=== PATIENT | female | born 1955 | race Caucasian/White ===

== ENCOUNTER 2019-11-25 15:34 | Outpatient (REF) | payer SELFPAY ==
[2019-11-25 16:36] LABS: Estmated Average Glucose 123; Hemoglobin A1C 5.9 % (4.0-6.0)
[2019-11-25 17:16] LABS: Cholesterol 140 mg/dL (0-200); Glucose 92 mg/dL (65-115); HDL Cholesterol 50 mg/dL (60-100); LDL Cholesterol Calculated 48 mg/dL (50-129); LDL HDL Ratio 0.96 RATIO (0.00-3.22); Triglycerides 210 mg/dL (0-150)
== END 2019-11-25 15:35 | disposition home or self-care (01) ==
LOC: LAB 15:34
PROVIDERS: Family Provider Nurse Practitioner; Visit Provider Dermatology
DX: Z13.9 Encounter for screening, unspecified (principal)
CPT/HCPCS: 80053; 80061; 81001; 82947; 83036

== ENCOUNTER → 2020-02-23 10:14 | Outpatient (BNVA) | payer MEDICARE, BC, SELFPAY | PROVIDERS: Family Provider Nurse Practitioner; Visit Provider Nurse Practitioner | DX: I10 Essential (primary) hypertension (principal); E11.65 Type 2 diabetes mellitus with hyperglycemia; F41.8 Other specified anxiety disorders | CPT/HCPCS: 80053; 81000; 83036 ==

== ENCOUNTER → 2020-05-18 09:10 | Outpatient (BNVA) | payer MEDICARE, BC, SELFPAY | PROVIDERS: Family Provider Nurse Practitioner; Visit Provider Nurse Practitioner | DX: E11.65 Type 2 diabetes mellitus with hyperglycemia (principal); I10 Essential (primary) hypertension | CPT/HCPCS: 80053; 80061; 81000; 83036 ==

== ENCOUNTER 2020-07-10 11:35 | Outpatient (CLI) | payer MEDICARE, BC, SELFPAY ==
--- NOTE | 2020-07-10 12:00 | MM_ITS ---
WS: [id number] BILATERAL SCREENING DIGITAL MAMMOGRAM WITH CAD HISTORY: Screening mammo COMPARISON: 06/17/2019 and 01/28/2017 Bilateral CC and MLO views submitted. Computer aided detection analyzed. Breast composition: There are scattered areas of fibroglandular density. No suspicious masses, microc alcifications or architectural distortion. Numerous bilateral benign calcifications within each breas t. MM/[place] [id number] IMPRESSION: BI-RADS: 2-Benign FOLLOW UP: 1 Year Follow-up
== END 2020-07-10 11:36 | disposition home or self-care (01) ==
LOC: RADSHAW 11:42
PROVIDERS: PCP Nurse Practitioner; Visit Provider Nurse Practitioner
DX: Z12.31 Encounter for screening mammogram for malignant neoplasm of breast (principal)
CPT/HCPCS: 77067

== ENCOUNTER → 2020-08-21 09:26 | Outpatient (BNVA) | payer MEDICARE, BC, SELFPAY | PROVIDERS: PCP Nurse Practitioner; Visit Provider Nurse Practitioner | DX: I10 Essential (primary) hypertension (principal); E11.65 Type 2 diabetes mellitus with hyperglycemia | CPT/HCPCS: 80053; 80061; 83036 ==

== ENCOUNTER → 2020-11-21 09:09 | Outpatient (BNVA) | payer MEDICARE, BC, SELFPAY | PROVIDERS: PCP Nurse Practitioner; Visit Provider Nurse Practitioner | DX: E11.65 Type 2 diabetes mellitus with hyperglycemia (principal); I10 Essential (primary) hypertension | CPT/HCPCS: 80053; 80061; 83036 ==

== ENCOUNTER → 2021-05-17 09:04 | Outpatient (BNVA) | payer MEDICARE, BC, SELFPAY | PROVIDERS: PCP Nurse Practitioner; Visit Provider Nurse Practitioner | DX: E11.65 Type 2 diabetes mellitus with hyperglycemia (principal); I10 Essential (primary) hypertension | CPT/HCPCS: 80053; 80061; 83036 ==

== ENCOUNTER → 2021-05-23 10:20 | Outpatient (BNVA) | payer MEDICARE, BC, SELFPAY | PROVIDERS: PCP Nurse Practitioner; Visit Provider Nurse Practitioner | DX: M25.551 Pain in right hip (principal); M79.604 Pain in right leg; M85.851 Other specified disorders of bone density and structure, right thigh | CPT/HCPCS: 72100; 73130; 73552; 73562; 73590 ==

== ENCOUNTER → 2021-11-26 09:50 | Outpatient (BNVA) | payer MEDICARE, BC, SELFPAY | PROVIDERS: PCP Nurse Practitioner; Visit Provider Nurse Practitioner | DX: E11.65 Type 2 diabetes mellitus with hyperglycemia (principal); I10 Essential (primary) hypertension | CPT/HCPCS: 80053; 80061; 83036 ==

== ENCOUNTER 2021-12-06 14:25 | Outpatient (CLI) | payer MEDICARE, BC, SELFPAY ==
--- NOTE | 2021-12-06 14:51 | XR_ITS ---
WS: [id number] Lumbar spine, 3 views, 12/06/2021 Clinical Data: M54.50 - Low back pain, unspecified Comparison: Lumbar spine, 05/23/2021. Findings: No compression fractures or subluxation is seen. There is degenerative disc narrowing at L5-S1. The t ransverse processes and SI joints are normal. Anterior osteoarthritic spurring is seen in the lower thoracic vertebral bodies and the L1 vertebral body. There is calcification of the wall of the abdominal aorta but no aneurysm. XR/XR lumbar spine 2-3V* [id number] Impression: 1. Degenerative disc narrowing at L5-S1. 2. Mild anterior osteoarthritic spurring at L1.
--- NOTE | 2021-12-06 14:51 | XR_ITS ---
WS: [id number] Sacrum and coccyx, 2 views, 12/06/2021 Clinical Data: M54.50 - Low back pain, unspecified Comparison: None. Findings: No fractures or dislocations are seen. The SI joints and pubic symphysis are unremarkable. No bone de struction or erosion is seen. There is osteoarthritic narrowing of the right hip. XR/XR coccyx 2V [id number] Impression: Negative sacrum and coccyx.
== END 2021-12-06 14:26 | disposition home or self-care (01) ==
LOC: RAD 14:28
PROVIDERS: PCP Nurse Practitioner; Visit Provider Nurse Practitioner
DX: M54.50 Low back pain, unspecified (principal)
CPT/HCPCS: 72100; 72220

== ENCOUNTER → 2022-03-20 08:38 | Outpatient (BNVA) | payer MEDICARE, BC, SELFPAY | PROVIDERS: PCP Nurse Practitioner; Visit Provider Nurse Practitioner | DX: E11.65 Type 2 diabetes mellitus with hyperglycemia (principal) | CPT/HCPCS: 80053; 80061; 83036 ==

== ENCOUNTER → 2022-03-22 09:51 | Outpatient (BNVA) | payer MEDICARE, BC, SELFPAY | PROVIDERS: PCP Nurse Practitioner; Visit Provider Nurse Practitioner | DX: E11.65 Type 2 diabetes mellitus with hyperglycemia (principal); I10 Essential (primary) hypertension; F41.8 Other specified anxiety disorders; M54.50 Low back pain, unspecified; M79.604 Pain in right leg | CPT/HCPCS: 81000 ==

== ENCOUNTER → 2022-06-12 10:45 | Outpatient (BNVA) | payer MEDICARE, BC, SELFPAY | PROVIDERS: PCP Nurse Practitioner; Visit Provider Nurse Practitioner | DX: E11.65 Type 2 diabetes mellitus with hyperglycemia (principal) | CPT/HCPCS: 80053; 80061; 83036 ==

== ENCOUNTER → 2022-08-21 11:23 | Outpatient (BNVA) | payer MEDICARE, BC, SELFPAY | PROVIDERS: PCP Nurse Practitioner; Visit Provider Nurse Practitioner | DX: M25.551 Pain in right hip (principal) | CPT/HCPCS: 73502 ==

== ENCOUNTER → 2022-09-10 14:19 | Outpatient (BNVA) | payer MEDICARE, BC, SELFPAY | PROVIDERS: PCP Nurse Practitioner; Referring Provider Nurse Practitioner; Visit Provider Student in an Organized Health Care Education/Training Program | DX: M16.11 Unilateral primary osteoarthritis, right hip (principal); I10 Essential (primary) hypertension; E11.65 Type 2 diabetes mellitus with hyperglycemia | CPT/HCPCS: 99204 ==

== ENCOUNTER → 2022-09-16 09:12 | Outpatient (BNVA) | payer MEDICARE, BC, SELFPAY | PROVIDERS: PCP Nurse Practitioner; Visit Provider Nurse Practitioner | DX: E11.65 Type 2 diabetes mellitus with hyperglycemia (principal) | CPT/HCPCS: 80053; 80061; 83036 ==

== ENCOUNTER → 2022-09-17 16:32 | Outpatient (BNVA) | payer MEDICARE, BC, SELFPAY | PROVIDERS: PCP Nurse Practitioner; Visit Provider Nurse Practitioner | DX: I10 Essential (primary) hypertension (principal); E11.65 Type 2 diabetes mellitus with hyperglycemia; F41.8 Other specified anxiety disorders; E78.1 Pure hyperglyceridemia; M54.50 Low back pain, unspecified; M79.604 Pain in right leg; Z23 Encounter for immunization | CPT/HCPCS: 81000 ==

== ENCOUNTER → 2022-10-02 10:39 | Outpatient (BNVA) | payer MEDICARE, BC, SELFPAY | PROVIDERS: PCP Nurse Practitioner; Visit Provider Student in an Organized Health Care Education/Training Program | DX: M16.11 Unilateral primary osteoarthritis, right hip (principal); E11.65 Type 2 diabetes mellitus with hyperglycemia | CPT/HCPCS: 99214 ==

== ENCOUNTER 2022-10-11 09:25 | Outpatient (CLI) | payer MEDICARE, BC, SELFPAY ==
--- NOTE | 2022-10-11 09:30 | CT_ITS ---
WS: [id number] NONCONTRAST CT RIGHT HIP TECHNIQUE: Noncontrast CT RIGHT hip with coronal and sagittal reformatted images. CLINICAL INFORMATION: Osteoarthritis of right hip COMPARISON: None. DLP: 764.[address] scans at [facility] use at least one of these dose optimization techniques: automated e xposure control; mA and/or kV adjustment per patient size (includes targeted exams where dose is matc hed to clinical indication); or iterative reconstruction. FINDINGS: Advanced osteoarthritis RIGHT hip with [id number] articulation. Associated hypertrophic spurring an d sclerosis involving the acetabulum and femoral head. Subchondral cystic change involving the femora l head. Normal inferior and superior pubic rami. Moderate degenerative narrowing LEFT hip. Advanced facet arthropathy lower lumbar spine. CT/CT hip RT wo con* [id number] IMPRESSION: Exam obtained for preoperative purposes.
== END 2022-10-11 09:26 | disposition home or self-care (01) ==
LOC: RAD 09:26
PROVIDERS: PCP Nurse Practitioner; Visit Provider Student in an Organized Health Care Education/Training Program
DX: Z01.818 Encounter for other preprocedural examination (principal); M16.11 Unilateral primary osteoarthritis, right hip
CPT/HCPCS: 73700

== ENCOUNTER 2022-10-23 14:49 | Inpatient (IN) | payer MEDICARE, BC, SELFPAY ==
--- NOTE | 2022-10-18 11:39 | ECG_ITS ---
[facility] Test Date: 2022-10-18 Pat Name: Alexus Goode Department: Room: Gender: Female Owner/Photographer: : [id number] Requested By: Miquel Haji Order Number: [id number] Sebas MD: John Stubbs M.D. Measurements Intervals [place] Rate: 60 P: 50 WV: 158 QRS: 13 QRSD: 85 T: 53 QT: 417 QTc: 418 Interpretive Statements SINUS RHYTHM Compared to ECG 01/13/2018 03:23:10 Sinus bradycardia no longer present T-wave abnormality no longer present Electronically Signed On 10-18-2022 14:41:21 MINT MACHINE OPERATOR by John Stubbs M.D. [id number]
[2022-10-18 12:10] LABS: Anion Gap 15.9 (5-19); Blood Urea Nitrogen 18 mg/dL (8-23); Calcium 8.8 mg/dL (8.5-10.5); Carbon Dioxide 23 mmol/L (22-29); Chloride 101 mmol/L (98-107); Glomerular Filtration Rate 44.8 mL/min (90-130); Glucose 110 mg/dL (65-115); Osmolality Calculated 285 mOsm/kg (285-295); Potassium 3.9 mmol/L (3.5-5.1); Sodium 136 mmol/L (136-145)
--- NOTE | 2022-10-18 14:05 | P.ANESASSM_ITS ---
Pre-Anesthetic Assessment Height/Weight: Height 1.57 m Operation Date: 10/23/22 10:20 Proposed Procedures p right hip total EARLENE anterior approach 88388,M16.9(Right) - DO Magui Caldwell anesthetic complications: none Was Beta Renee taken within 24 hours: N/A Was Clonidine taken within 24 hours: N/A Social Tobacco and No alcohol Exam alert, oriented x 3 and regular rate & rhythm Airway Submandibular: within normal limits Cervical ROM: within normal limits Mallampati: Class II Dentition: full Pulmonary Chronic Obstructive Pulmonary Disease CV/HEM Hypertension Metabolic Diabetes Mellitus [facility] Lower Back Pain and Osteoarthritis/DJD Neuropsych Anxiety Anesthetic Plan ASA status: 3 Anesthesia: Regional (specify below) (SAB) Medications/Allergies Home Medications Medication Instructions Recorded Confirmed Last Taken Type aspirin 81 mg tablet,delayed 81 mg PO DAILY 11/24/19 10/18/22 10/04/22 History release (Aspir-) camphor-methyl salicylate-menthol patch topical 11/28/21 10/02/22 Unknown History topical patch coenzyme J52-evmopls E 100 mg-100 100 cap PO DAILY 11/28/21 10/18/22 10/04/22 History unit capsule turmeric root extract 500 mg 500 mg PO BID 11/28/21 10/18/22 10/04/22 History capsule amlodipine 5 mg tablet 5 mg PO DAILY #30 tabs 09/17/22 10/18/22 10/18/22 Rx dapagliflozin 10 mg tablet 10 mg PO QAM #30 tabs 09/17/22 10/18/22 10/18/22 Rx (Farxiga) escitalopram oxalate 20 mg tablet 20 mg PO DAILY #30 tabs 09/17/22 10/18/22 10/18/22 Rx fenofibrate nanocrystallized 145 145 mg PO DAILY #30 tabs 09/17/22 10/18/22 10/18/22 Rx mg tablet (Tricor) hydroxyzine pamoate 25 mg capsule 25 mg PO .at bedtime #30 caps 09/17/22 10/18/22 10/17/22 Rx lisinopril 20 mg tablet 20 mg PO BID #60 tabs 09/17/22 10/18/22 10/18/22 Rx zonisamide 50 mg capsule 50 mg PO Q12H #60 caps 1210/18/22 10/18/22 Rx Allergies Allergy/AdvReac Type Severity Reaction Status Date / Time No Known Allergies Allergy Verified 10/18/22 10:46 [facility] Anesthesia Medical History Controlled type 2 diabetes mellitus with hyperglycemia, without long-term current use of insulin HTN, goal below 130/80 Short-term memory loss Situational anxiety Surgical History History of section History of hysterectomy with bilateral oophorectomy Family History Mother Cancer Breast age 89.5 Other Diabetes Social History Smoking and tobacco status: former smoker Second hand smoke exposure: No Smoking risk assessment/counseling performed?: No Alcohol intake: never Desire information about alcohol rehabilitation?: No Counseling given: No Desire information about substance/drug rehabilitation?: No Counseling given: No Adopted: No Caregiver/support person: No Lives independently: Yes Household members: none Housing: House Marital status: / Number of children: 1 Number of grandchildren: 1 service: No Current occupational status: unemployed Current occupational exposures/hazards: No History of recent travel: No Current gender identity: Female Data Anesthesia 10/18/22 11:08 BMP 10/18/22 11:08 Sodium 136 Potassium 3.9 Chloride 101 Carbon Dioxide 23 BUN 18 Creatinine 1.2 H Glucose 110 Calcium 8.8 Cardiac Studies: No Data to Display
[2022-10-23] VITALS (13 sets, daily range): BP systolic 89–119; BP diastolic 54–75; PULSE 60–81; RESP 16–21; TEMP 36.1–36.7; O2SAT 93–98; BMI 27.4; BMI 26.9
--- NOTE | 2022-10-23 | XR_ITS ---
WS: [id number] Exam: XR hip RT 1V wo/w pel [id number] Date/Time of Exam: 10/23/2022 12:00 AM Reason For Exam: anterior total hip Single AP intraoperative image of the right hip is submitted. The image depicts a total hip prosthesis in place. Parts of the acetabular cup are out of the field-o f-view.
[2022-10-23] MEDS: sodium chloride 0.9% 1,000 ML 30 ML IV (09:03)
[2022-10-23] MEDS: acetaminophen 1,000 MG/100 ML PIGGYBACK 400 MG IV (09:03)
--- NOTE | 2022-10-23 09:20 | P.ANESUD_ITS ---
Pre-Anesthetic Update Pre-Anesthetic Assessment: Date of Surgery/Procedure: 10/23/22 Preop Nohemi gnosis: Right hip degenerative joint disease, failed conservative treatment Proposed Procedure: Operation Date: 10/23/22 10:10 Proposed Procedures p right hip total EARLENE anterior approach 50490,M16.9(Right) - Ton Sandeep, DO Any changes to Pre-Anesthetic Assessment?: No Last Intake: Intake Last Liquid Date 10/22/22 Last Liquid Time 23:30 Last Solid Date 10/22/22 Last Solid Time 18:00 Vitals: Temperature 97.7 F 10/23/22 08:52 Temperature Source Temporal Artery S can 10/23/22 08:52 Pulse Rate 60 10/23/22 08:52 Respiratory Rate 17 10/23/22 08:52 Blood Pressure 118/66 10/23/22 08:52 Blood Pressure Alysa n 83 10/23/22 08:52 Pulse Oximetry 94 10/23/22 08:52 Oxygen Delivery Me thod 10/23/22 08:54 Exam: Pre-Anes Outpt Exam: alert, oriented x 3, clear to auscultation bilaterally and regular rate & rhythm Cardiac Studies: No Data to Display
--- NOTE | 2022-10-23 10:15 | W.PM.OPSUD ---
Surgery/Procedure H&P Update DATE OF PROCEDURE: October 24, 2022 DATE H&P PERFORMED: 10/02/22 CHANGES TO PREVIOUS DOCUMENTATION: none. PREOP DIAGNOSIS: Right hip degenerative joint disease, failed conservative treatment PRIMARY INDICATION FOR PROCEDURE: Right hip degenerative joint disease failed conservative treatment PLANNED PROCEDURE: Operation Date: 10/23/22 10:10 Proposed Procedures p right hip total EARLENE anterior approach 57995,M16.9(Right) - Ton Hopkins DO
[2022-10-23 10:35] LABS: Basophils % 0.6 %; Eosinophils # 0.1 10^3/uL (0.0-0.8); Eosinophils % 2.8 %; Hematocrit 39.6 % (37.0-47.0); Hemoglobin 12.9 g/dL (11.5-15.3); Mean Corpuscular HGB Conc 32.6 g/dL (30.0-36.0); Mean Corpuscular Hemoglobin 31.4 pg (28.0-34.0); Mean Corpuscular Volume 96.4 fl (81-99); Monocytes # 0.4 10^3/uL (0.2-0.9); Monocytes % 7.7 %; Neutrophils # 2.19 10^3/uL (1.8-7.7); Neutrophils % 46.7 %; Nucleated Red Blood Cells % 0 %; Platelet Count 279 10^3/cmm (130-400); Red Blood Count 4.11 10^6/uL (4.1-5.3); Red Cell Distribution Width 12.6 % (12.1-15.1); White Blood Count 4.7 10^3/uL (4.0-10.0)
[2022-10-23 11:05] LABS: Protein Urine Trace (Negative); Specific Gravity, Urine 1.025 (1.005-1.030); Urine Appearance Clear (CLEAR); Urine Color Yellow (Yellow); pH Urine 5 (5-7)
[2022-10-23 11:06] LABS: Add Urine Microscopic? YES; Bilirubin Urine Neg (Negative); Blood Urine Neg (Negative); Glucose Urine UA 4+ (Normal); Ketones Urine 1+ (Negative); Leukocyte Esterase Urine Negative (Negative); Nitrate Urine Negative (Negative); Urobilinogen Urine Neg (Negative)
[2022-10-23 11:19] LABS: Add Urine Culture? No; Amorphous Sediment Urine 1+ /hpf; Bacteria Urine TRACE /hpf; RBC Urine RARE /hpf (0-2); WBC Urine RARE /hpf (0-5)
[2022-10-23] MEDS: ceFAZolin 2,000 MG in sodium chloride 0.9% (plus) 50 ML 100 MG IV ×2 (11:30→18:22)
[2022-10-23] MEDS: tranexamic acid 1,000 mg/10mL SDV 1000 MG IV (12:10)
[2022-10-23] MEDS: vancomycin 1,000 MG SDV 1000 MG XX (13:16)
--- NOTE | 2022-10-23 13:21 | ANES.PROC ---
Anesthesia Procedures Procedure/Date: 10/23/22 fascia iliaca block Nerve Block ^: Nerve Block 1: Main Anesthesia: spinal anesthesia block Time Out Performed: Yes Consent: requested by attending/covering physician, risks and benefits reviewed and patient agrees to proceed Nerve block location: other (fascia iliaca) Anesthesia monitors applied: pulse oximetry, EKG, BP cuff and oxygen Nerve block position: supine Anesthetic Used: ropivicaine 0.5% Amount of anesthesia used (mL): 30 Ultrasound used to: recognize landmarks Nerve Stimulator Used?: No Interscalene/Femoral BLK: 4 stimuplex 21 g needle used for position and inplane approach, visualize local anesthetic spread and no vascular puncture identified Injection: neg aspiration of heme Patient Tolerated Procedure: well and no complications Complications: none
--- NOTE | 2022-10-23 14:27 | PM.OP2 ---
Brief Operative Note Date of procedure: 10/23/22 Pre-op diagnosis: Right hip degenerative joint disease Post-op diagnosis: same Procedure Done: Right total hip arthroplasty?anterior approach [place] Surgeon: Ton Hopkins Estimated blood loss (mL): 300 Complications: None Post-op Plan: Patient taken PACU in stable condition recovering well. Patient will be admitted to the floor. Internal medicine will be on board for medical management. Postoperative antibiotics, TXA, pain control, PT/OT. Condition: stable Disposition: floor Coding Level of Care Code Acute Code for Jordin Enrique
--- NOTE | 2022-10-23 14:36 | PM.PACU ---
PACU note Narrative: Patient taken to PACU in stable condition recovering well. Dressings on in place are clean dry and intact. She is able to wiggle toes plantarflex and dorsiflex ankle sensation is recovering. Unable to assess full motor and sensory secondary to spinal anesthesia. Exam: awake Disposition: admitted
--- NOTE | 2022-10-23 14:37 | PM.OP ---
Operative Report Date of procedure: October 23, 2022 Pre-op diagnosis: Preop Diagnosis Right hip degenerative joint disease, failed conservative treatment Post-op diagnosis: Same Procedure done: Direct anterior supine uncemented right total hip arthroplasty using [place] robotic arm assistance Implants: [place] total hip arthroplasty implants Acetabular cup 48 mm cluster hole 2 x acetabular screws 25 mm and 20 mm Polyinsert 0 liner 36 mm Femoral head ceramic +0 Femoral stem Accolade II size #4 127 degree high offset Specimens removed/disposition: Femoral head removed Surgeon: Ton Hopkins DO Estimated blood loss: 300mL IV fluids: See anesthesia record Urine output: See anesthesia record Complications: None Findings: See operative report narrative Condition: stable Disposition: floor Brief History: The patient is a 66-year-old female end stage osteoarthritis of the right hip that has failed conservative measures. We discussed the diagnosis and options, ongoing conservative care versus surgery. The patient is motivated to exploit a surgical approach.? I have outlined my approach including the ins and outs of surgery, the anticipated postoperative recovery, as well as the inherent risks, benefits, complications, and alternatives.? The patient understands the risks, benefits, and alternatives as well as the complications of the surgery regarding the total hip arthroplasty including but not limited to leg length discrepancies and possibility of dislocation, and other complications including nerve damage, bleeding, blood clot, DVT, heart attack, stroke, and loss of life and limb. The patient has been optimized from a medical standpoint with full understanding of the above and elects to proceed with surgery today.? The [place] robotic arm was used to improve and verify implant placement and leg lengths. Procedure: The patient was properly identified in the preop holding area per verbal and badge. Risks and benefits were discussed with the patient. The patient decided to proceed with the procedure, correctly identified the?right?hip as the surgical site and was marked apropriately. When seen evaluate in the preoperative holding area patient was seen evaluated by anesthesia and cleared for surgery. Patient did undergo for pain control a fascia iliac a block as well as a spinal anesthesia. The patient was administered tranexamic acid and preop antibiotics, taken to the operative suite, and placed in the supine position. All bony prominences were properly padded, securely fixed to the table, and administered?general?anesthetic. The patient was subsequently transferred from the hospital bed to the [place] table. Bilateral lower extremities were placed in the traction boots. The pelvis was well approximated against the perineal post. Final timeout performed. Patient received appropriate preoperative antibiotics. Both hips were then prepped and draped in a normal orthopedic fashion. Started with a small incision 2 fingerbreadths above the ASIS on the left iliac wing to place her pelvic arrays. Small incision was made directly down to bone. 3 pelvic pins were placed with excellent fixation. The robotic array was secured to the nonoperative iliac wing using sterile technique. The extremity was then definitively draped in standard, sterile fashion.? The array was found to be visible by the robot. A standard direct anterior supine approach was performed to the?operative hip joint. The skin was incised down to the tensor fascia filippo muscle and fascia. Fascia was split longitudinally in line with its fibers. The tensor fascia filippo muscle was retracted laterally. The appropriate retractors were placed superiorly. Lateral circumflex vessels were identified and appropriately ligated. The hip capsule was then identified. Appropriate retractors were placed superiorly and inferiorly along the capsule directly onto bone. That was split longitudinally up to the acetabular rim in line with the femoral neck. The femoral capsule was found to be significantly hypertrophic, thickened, and significantly fibrotic. The capsule was then elevated both superiorly and inferiorly down to the lesser trochanter as well as up towards the greater trochanter. Tag stitches were applied with 0 Vicryl into the capsule. Femoral check point was?then inserted and confirmed on the lateral proximal femur. Retractors were then placed inside and over the anterior acetabular wall. The hip was?externally rotated 30 degrees.? A distal marker?was placed into the distal femur for measurement of leg lengths. Leg lengths were confirmed at this point. Next the appropriate-sized neck cut was then performed after being measured with robotic assistance. Femoral head was removed from the right acetabulum. Femoral head was found to be flat, eburnated bone with complete collapse of the superior portion and significant deformity. Acetabulum was also inspected and was found to have peripheral osteophytes as well as hpbt-ir-bnen arthritis. The remaining labrum was then excised from the periphery of the acetabular rim. At this point registration for the [place] was performed on the acetabular side and confirmed. Once confirmed, any osteophytes able to be were removed. We planned 40 degrees of lateral opening and 20 degrees of anteversion. At this point, we reamed and medialized to the inner wall of the acetabulum with a size?48?reamer for a definitive ream using robotic arm assistance.?The acetabulum was found to have good bleeding bone throughout. ?The definitive acetabular cup 48 mm was inserted and impacted under?[place] guidance with the appropriate amount of anteversion and lateral opening. It was then secured with 2 6.5 mm cancellous screws in appropriate safe zone position, and a 36-mm X3 neutral liner was impacted into the?acetabular shell and secured. Hip was then irrigated with copious amounts of irrigation. At this point, the remaining femoral releases were then performed allowing the adequate mobilization of the?right?femur. The femur was then externally rotated, extended, and adducted giving adequate exposure of the proximal femur in the surgical wound. Box cut was then used to enter the intramedullary canal of the?femur. Canal finder was placed down the canal of the?operative femur. Appropriate-sized broaches from a size 0 up to a size?4were impacted down the operative femoral canal with the appropriate amount of anteversion.? A?+0 mm neck was found to be most appropriate for a soft tissue tensioning offset and the leg lengths that was confirmed with [place]. ? At this point, the hip was relocated.?[place] guidance was again used to confirm equal leg lengths. Operative hip was then re-dislocated using a bone hook. All trials were then removed from the?operative femur. Adequate exposure was then once again obtained. The trials were removed. The definitive Accolade II stem size 4 was impacted down the?right?femoral canal with the appropriate amount of anteversion. The appropriate sized head was impacted onto the trunnion, and the?operative?hip was then relocated with flexion, internal rotation, and abduction. Final measurements were obtained on [place] confirming leg lengths and offset. Hip was irrigated with copious amounts of irrigation. Vancomycin powder was placed within the wound bed for added infection prophylaxis given patient is a diabetic. The superior and inferior leaflets of the capsule were then closed with Ethibond suture. The superficial layer of the tensor fascia filippo fascia was re-sutured using 0 stratafix suture in a running fashion. Subcutaneous tissues were closed with running 3-0 Stratafix, skin was closed with 4-0 monocryl.?Surgical glue and steri strips were?applied and covered with a Silverlon dressing to the operative side.?The incision on the non-operative side for the robotic array was closed with layered fashion of 0 Vicryl, 2-0 Vicryl and running Monocryl suture and surgical glue. ?The patient was subsequently awoken per Anesthesia and transferred to PACU in satisfactory condition. ?Leg lengths and rotational profile were found to be appropriate. ? DISPOSITION: The patient will be admitted to the hospital for initiation of DVT prophylaxis, physical therapy, pain control. The patient is to weight bear as tolerated. Anterior hip precautions, postoperative antibiotics,?postoperative TXA and Eliquis?for DVT prophylaxis, and instructed to follow up in my office in 2 weeks. Patient with work with PT/OT.
--- NOTE | 2022-10-23 14:45 | XR_ITS ---
WS: [id number] Exam: XR hip RT 2-3V wo/w pel* [id number] Date/Time of Exam: 10/23/2022 2:53 PM Reason For Exam: post op Compared to intraoperative C-arm AP image of the right hip obtained earlier on the same day. A right total hip prosthesis is noted in excellent position. Postoperative changes in the adjacent so ft tissues. The pelvis is intact. XR/XR hip RT 2-3V wo/w pel* [id number] IMPRESSION: 1. Right total hip arthroplasty in excellent position.
--- NOTE | 2022-10-23 15:04 | PM.CONSULT ---
Providers/Reason For Consult Consulting Physician/Specialty*: orthopedic Reason for Consult*: medical manage Attending Physician: Ton Hopkins DO Primary Care Provider: KAPIL Colvin History of Present Illness History of Present Illness Alexus Goode is a 66 year old female with a past medical history of noninsulin-dependent type 2 diabetes mellitus, hypertension, hypertriglyceridemia, anxiety, who presents to [facility] for a right hip arthroplasty, currently she is in the PACU, alert oriented x3, has no pain complaints she tells me that her last A1c was in the 6 range, blood sugars are well controlled, no chest pain, palpitations no history of CAD, history of COPD, no history of strokes, hospitalist team was called for medical management of type 2 diabetes mellitus, hypertension Review of Systems Const: Denies: fever(s) Card: Denies: chest pain Resp: Denies: dyspnea GI: Denies: abdominal pain : Denies: difficulty voiding Neuro: Denies: headache(s) Medications/Allergies Home Medications Medication Instructions Recorded Confirmed Last Taken Type aspirin 81 mg tablet,delayed 81 mg PO DAILY 11/24/19 10/18/22 10/02/22 History release (Aspir-) camphor-methyl salicylate-menthol patch topical 11/28/21 10/02/22 09/23/22 History topical patch coenzyme [id number] E 100 mg-100 100 cap PO DAILY 11/28/21 10/18/22 09/23/22 History unit capsule turmeric root extract 500 mg 500 mg PO BID 11/28/21 10/18/22 09/23/22 History capsule amlodipine 5 mg tablet 5 mg PO DAILY #30 tabs 09/17/22 10/18/22 10/22/22 Rx dapagliflozin 10 mg tablet 10 mg PO QAM #30 tabs 09/17/22 10/18/22 10/22/22 Rx (Farxiga) escitalopram oxalate 20 mg tablet 20 mg PO DAILY #30 tabs 09/17/22 10/18/22 10/22/22 Rx fenofibrate nanocrystallized 145 145 mg PO DAILY #30 tabs 09/17/22 10/18/22 10/22/22 Rx mg tablet (Tricor) hydroxyzine pamoate 25 mg capsule 25 mg PO .at bedtime #30 caps 09/17/22 10/18/22 10/22/22 Rx lisinopril 20 mg tablet 20 mg PO BID #60 tabs 09/17/22 10/18/22 10/22/22 Rx zonisamide 50 mg capsule 50 mg PO Q12H #60 caps 09/17/22 10/18/22 10/22/22 Rx Allergies Allergy/AdvReac Type Severity Reaction Status Date / Time No Known Allergies Allergy Verified 10/23/22 08:57 Current Medications Generic Name Dose Route Start Last Admin Trade Name Eden PRN Reason Stop Dose Admin Sodium Chloride 1,000 mls @ 30 mls/hr 10/23/22 08:45 10/23/22 13:15 Sodium Chloride 0.9% IV 10/24/22 08:44 Infused .Q24H SREEDHAR Infusion PFSH Acute PFSH: Medical History Controlled type 2 diabetes mellitus with hyperglycemia, without long-term current use of insulin HTN, goal below 130/80 Short-term memory loss Situational anxiety Surgical History History of section History of hysterectomy with bilateral oophorectomy Family History Mother Cancer Breast age 89.5 Other Diabetes Social History Smoking and tobacco status: former smoker Second hand smoke exposure: No Smoking risk assessment/counseling performed?: No Alcohol intake: never Desire information about alcohol rehabilitation?: No Counseling given: No Desire information about substance/drug rehabilitation?: No Counseling given: No Adopted: No Caregiver/support person: No Lives independently: Yes Household members: none Housing: House Marital status: / Number of children: 1 Number of grandchildren: 1 service: No Current occupational status: unemployed Current occupational exposures/hazards: No History of recent travel: No Current gender identity: Female Vitals/I&O/Wt Last Vital Signs Temp 97.0 F L 10/23/22 14:29 Pulse 77 10/23/22 14:49 Resp 16 10/23/22 14:49 BP 105/70 10/23/22 14:49 Pulse Ox 93 10/23/22 14:49 O2 Del Method 10/23/22 14:49 O2 Flow Rate 6 10/23/22 14:34 10/23/22 10/23/22 10/23/22 06:59 14:59 22:59 Intake Total 1450 / 1450 50 / 1500 Output Total 650 / 650 Balance 800 / 800 50 / 850 Weight last 48 hrs Weight 68.039 kg Physical Exam Const: COMMON NORMALS: no acute distress and patient oriented x3 HENMT: COMMON NORMALS: normocephalic HEAD & SCALP: normocephalic Eye: COMMON NORMALS: Equal, round and reactive pupils present and EOMs intact bilaterally PUPIL: Yes Equal, round and reactive pupils present Neck/C-Spine: COMMON NORMALS: no lymphadenopathy Resp: COMMON NORMALS: normal respiratory effort, No retractions, No use of accessory muscles and clear to auscultation bilaterally AUSCULTATION: clear to auscultation bilaterally Cardio: COMMON NORMALS: regular rate, regular rhythm, S1 normal heart sound present and S2 normal heart sound present RATE: regular rate RHYTHM: regular rhythm HEART SOUNDS: S1 normal heart sound present and S2 normal heart sound present GI: COMMON NORMALS: Normal to inspection, nondistended, normoactive bowel sounds present and non-tender Extremity: COMMON NORMALS: no pedal edema Neuro: COMMON NORMALS: patient oriented x3 and CN's II-XII intact bilaterally Psych: COMMON NORMALS: mental status grossly normal Urinary Catheter Management: De Paz: Cath Placed During This Visit: yes Urinary Catheter Date of Insertion: 10/23/22 Urinary Catheter Time of Insertion: 12:00 Data 10/23/22 10:13 10/18/22 11:08 A&P Assessment and plan (1) Osteoarthritis of hip: (2) Hypertriglyceridemia: (3) HTN, goal below 130/80: (4) Controlled type 2 diabetes mellitus with hyperglycemia, without long-term current use of insulin: Plan Status post right hip arthroplasty -Pain control, anticoagulation, PT OT as per orthopedic team Type 2 diabetes mellitus, low-dose sliding scale Hypertension, continue home Norvasc, lisinopril Consult Attestations Medical Necessity Statement: Patient requires hospitalization for right hip arthroplasty Coding Level of Care Code Acute Code for [facility] Fwd Diagnoses Osteoarthritis of hip M16.9 Hypertriglyceridemia E78.1 HTN, goal below 130/80 I10 Controlled type 2 diabetes mellitus with hyperglycemia, without long-term current use of insulin E11.65
--- NOTE | 2022-10-23 15:51 | ANE.PACU2 ---
Inpatient post-anesthesia follow up: Airway intact: Yes Vital signs: Temperature 97.0 F Pulse Rate 73 Respiratory Rate 16 Blood Pressure 119/62 Pulse Oximetry 94 Oxygen Delivery Me thod Room Air Oxygen Flow Rate 6 Fraction of Inspir ed Oxygen Hydration adequate: Yes Nausea and vomiting: No Pain level: 1 Mental status: Baseline
[2022-10-23] MEDS: acetaminophen 500 mg Tablet 1000 MG PO ×2 (15:57→23:27)
[2022-10-23] MEDS: lactated ringers 1,000 ML 100 ML IV (15:58)
[2022-10-23] MEDS: lisinopril 20 mg Tablet PO (16:50)
[2022-10-23] MEDS: calcium carbonate 500 mg Chew Tablet 1000 MG PO (16:50)
[2022-10-23] MEDS: iron polysaccharide complex 150 mg Capsule PO (16:50)
[2022-10-23] MEDS: sennosides-docusate Tablet 2 TAB PO (16:50)
[2022-10-23 16:51] LABS: Glucose Point of Care 143 mg/dL (70-110)
[2022-10-23] MEDS: mupirocin oint 22 gm 1 APPLIC NASAL (16:51)
[2022-10-23] MEDS: TRAMadol 50 mg Tablet PO (17:20)
[2022-10-23] MEDS: hyDROXYzine 25 mg Capsule PO (20:20)
[2022-10-23] MEDS: chlorhexidine gluconate 0.12% Btl 473 mL 30 ML MUCOUS MEM (20:21)
[2022-10-23 20:55] LABS: Glucose Point of Care 172 mg/dL (70-110)
[2022-10-24] VITALS (11 sets, daily range): BP systolic 97–150; BP diastolic 55–103; PULSE 66–89; RESP 16–21; TEMP 36.3–37.3; O2SAT 94–98
[2022-10-24] MEDS: lactated ringers 1,000 ML 100 ML IV ×3 (01:21→20:18)
[2022-10-24] MEDS: oxyCODONE 5 mg IR Tab/Cap PO ×3 (01:25→11:53)
[2022-10-24 02:31] LABS: Basophils % 0.3 %; Hematocrit 32.1 % (37.0-47.0); Hemoglobin 10.6 g/dL (11.5-15.3); Lymphocytes # 0.9 10^3/uL (0.8-4.8); Lymphocytes % 11.2 %; Mean Corpuscular Hemoglobin 32.2 pg (28.0-34.0); Mean Corpuscular Volume 97.6 fl (81-99); Mean Platelet Volume 9.4 fL (7.4-10.4); Monocytes # 0.8 10^3/uL (0.2-0.9); Monocytes % 10.5 %; Neutrophils # 6.22 10^3/uL (1.8-7.7); Neutrophils % 77.9 %; Nucleated Red Blood Cells % 0 %; Platelet Count 215 10^3/cmm (130-400); Red Blood Count 3.29 10^6/uL (4.1-5.3); Red Cell Distribution Width 12.6 % (12.1-15.1)
[2022-10-24 02:54] LABS: Anion Gap 15.3 (5-19); Blood Urea Nitrogen 20 mg/dL (8-23); Calcium 8.4 mg/dL (8.5-10.5); Carbon Dioxide 22 mmol/L (22-29); Chloride 105 mmol/L (98-107); Glomerular Filtration Rate 40.9 mL/min (90-130); Glucose 135 mg/dL (65-115); Osmolality Calculated 291 mOsm/kg (285-295); Potassium 4.3 mmol/L (3.5-5.1); Sodium 138 mmol/L (136-145)
[2022-10-24] MEDS: ceFAZolin 2,000 MG in sodium chloride 0.9% (plus) 50 ML 100 MG IV ×2 (03:31→11:54)
[2022-10-24 06:27] LABS: Glucose Point of Care 111 mg/dL (70-110)
[2022-10-24] MEDS: acetaminophen 500 mg Tablet 1000 MG PO ×3 (06:37→23:30)
[2022-10-24] MEDS: apixaban 5 mg Tablet 2.5 MG PO ×2 (09:12→17:49)
[2022-10-24] MEDS: multivitamin therapeutic Tablet 1 TAB PO (09:12)
[2022-10-24] MEDS: iron polysaccharide complex 150 mg Capsule PO ×2 (09:12→17:46)
[2022-10-24] MEDS: fenofibrate 145 mg Tablet PO (09:13)
[2022-10-24] MEDS: lisinopril 20 mg Tablet PO ×2 (09:13→17:46)
[2022-10-24] MEDS: cholecalciferol (vitamin D3) 1,000 unit Tablet 1000 UNIT PO (09:13)
[2022-10-24] MEDS: aspirin 81 mg EC Tablet PO (09:13)
[2022-10-24] MEDS: calcium carbonate 500 mg Chew Tablet 1000 MG PO ×2 (09:13→17:46)
[2022-10-24] MEDS: escitalopram 10 mg Tablet 20 MG PO (09:13)
[2022-10-24] MEDS: sennosides-docusate Tablet 2 TAB PO ×2 (09:13→17:46)
[2022-10-24] MEDS: chlorhexidine gluconate 0.12% Btl 473 mL 30 ML MUCOUS MEM ×4 (09:14→20:18)
[2022-10-24] MEDS: mupirocin oint 22 gm 1 APPLIC NASAL ×2 (09:14→17:47)
[2022-10-24] MEDS: amlodipine 5 mg Tablet PO (09:14)
--- NOTE | 2022-10-24 09:55 | P.PN_ITS ---
Subjective Subjective: Patient was seen this morning, she has work with physical therapy yet, her hip pain is well controlled she is worried about going home as her family does not have power and there is been issues with the road near her home Vitals/I&O/Wt Last Vital Signs Temp 99.2 F 10/24/22 07:32 Pulse 68 10/24/22 07:39 Resp 16 10/24/22 07:39 BP 116/61 10/24/22 07:32 Pulse Ox 94 10/24/22 07:39 O2 Del Method 10/24/22 07:39 O2 Flow Rate 6 10/23/22 14:34 10/23/22 10/24/22 10/24/22 22:59 06:59 14:59 Intake Total 840 / 2290 1668.333 / 3958.333 120 / 120 Output Total 2650 / 3300 Balance 840 / 1640 -981.667 / 658.333 120 / 120 Weight last 48 hrs Weight 66.678 kg Weight 68.039 kg Physical Exam Const: COMMON NORMALS: no acute distress and patient oriented x3 Resp: COMMON NORMALS: normal respiratory effort, No retractions, No use of accessory muscles and clear to auscultation bilaterally AUSCULTATION: clear to auscultation bilaterally Cardio: COMMON NORMALS: regular rate, regular rhythm, S1 normal heart sound present and S2 normal heart sound present RATE: regular rate RHYTHM: regular rhythm HEART SOUNDS: S1 normal heart sound present and S2 normal heart sound present GI: COMMON NORMALS: Normal to inspection, nondistended, normoactive bowel sounds present and non-tender Extremity: COMMON NORMALS: no pedal edema Neuro: COMMON NORMALS: patient oriented x3 Psych: COMMON NORMALS: mental status grossly normal Urinary Catheter Management: De Paz: Cath Placed During This Visit: yes, but has since been removed by the nurse Reason for Continuing Indwelling Catheter: Decision to DC Catheter Urinary Catheter Date of Insertion: 10/23/22 Urinary Catheter Time of Insertion: 12:00 Date Urinary Catheter Removed: 10/24/22 Time Urinary Catheter Discontinued: 06:39 Data 10/24/22 01:58 10/24/22 01:58 A&P Assessment and plan (1) Osteoarthritis of hip: (2) Hypertriglyceridemia: (3) HTN, goal below 130/80: (4) Controlled type 2 diabetes mellitus with hyperglycemia, without long-term current use of insulin: Plan Status post right hip arthroplasty -Pain control, anticoagulation, PT OT as per orthopedic team Type 2 diabetes mellitus, low-dose sliding scale Hypertension, continue home Norvasc, lisinopril Plan for today PT OT, blood sugar control, potential discharge Attestations Medical Necessity Statement*: Patient requires hospitalization for right hip arthroplasty Coding Level of Care Code Acute Code for [facility] Fwd Diagnoses Osteoarthritis of hip M16.9 Hypertriglyceridemia E78.1 HTN, goal below 130/80 I10 Controlled type 2 diabetes mellitus with hyperglycemia, without long-term current use of insulin E11.65
--- NOTE | 2022-10-24 11:37 | PM.PN ---
Subjective Subjective: Patient seen and evaluated around lunchtime. She had just work with therapy. Patient still has some decreased sensation from her fascia iliac a block as well as some residual motor weakness. Pain is well controlled. No other issues at this time. She will continue to work with PT/OT. At this point time talking with family and patient she would like to stay another night and work with therapy to continue to allow this block to wear off for her to have more successful session with therapy. Vitals/I&O/Wt Last Vital Signs Temp 99.2 F 10/24/22 07:32 Pulse 68 10/24/22 07:39 Resp 16 10/24/22 07:39 BP 116/61 10/24/22 07:32 Pulse Ox 94 10/24/22 07:39 O2 Del Method 10/24/22 07:39 O2 Flow Rate 6 10/23/22 14:34 10/23/22 10/24/22 10/24/22 22:59 06:59 14:59 Intake Total 840 / 2290 1668.333 / 3958.333 1070 / 1070 Output Total 2650 / 3300 Balance 840 / 1640 -981.667 / 709.846 4783 / 1070 Weight last 48 hrs Weight 147 lb Weight 150 lb Physical Exam Narrative: Examination right hip demonstrates patient is laying in bed just finished with therapy. Unable to perform full assessment secondary to patient still having some decreased sensation from her fascia iliac a block as well as motor weakness. She has weakness with knee extension as well as hip flexion. Unable to assess hamstring strength that she is in bed however talked with therapy states she does have some weakness with her hamstrings as well. She is able to wiggle toes plantarflex and dorsiflex ankle. States her sensations intact to light touch distally at the SPN/DPN/tibial and saphenous and sural nerve distribution. She does have decreased sensation over the lateral femoral cutaneous and anteromedial thigh. Distal pulses palpable. Dressings to the right hip and left hip are clean dry and intact. Normal postoperative swelling to the right thigh. Compartment soft compressible. Urinary Catheter Management: De Paz: Cath Placed During This Visit: yes, but has since been removed by the nurse Reason for Continuing Indwelling Catheter: Decision to DC Catheter Urinary Catheter Date of Insertion: 10/23/22 Urinary Catheter Time of Insertion: 12:00 Date Urinary Catheter Removed: 10/24/22 Time Urinary Catheter Discontinued: 06:39 Data 10/24/22 01:58 10/24/22 01:58 Xray Ortho: My impression: Postoperative x-rays of the right hip demonstrate a stable right total hip arthroplasty implant with no periprosthetic fracture or dislocation. Stable implant with appropriate alignment leg lengths. A&P Assessment and plan (1) Status post total hip replacement, right: Plan PT/OT Anterior hip precautions Weightbearing as tolerated right lower extremity Postoperative antibiotics Postoperative TXA Postop DVT prophylaxis?[facility] Internal medicine on board for medical management Ice as needed Diabetic diet Orthopedics will continue to monitor A.m. labs reviewed Dressings remain on in place unless becomes saturated Attestations Medical Necessity Statement*: Postoperative care right total hip arthroplasty Coding Level of Care Code Acute Code for [facility] Fwd Diagnoses Status post total hip replacement, right Z96.641 Time Spent (min) 30
[2022-10-24 11:45] LABS: Glucose Point of Care 180 mg/dL (70-110)
--- NOTE | 2022-10-24 12:55 | PC.CHAP ---
Pastoral Care Encounter/Spiritual Assessment Type of Contact [] Declined commercial real estate assistant visit [] Patient/Family/Request visit [] Outpatient visit [] Follow-up visit [] Physician referral [] Code/Alert [x] Routine visit [] Staff referral [] Actively dying [] Patient sleeping [] Family support [] [] Out of room [] Palliative care [] [] Receiving care in room [] Pre-surgical visit [] Trauma [] Long length of stay [] ICU visit [] Other: Relational/Emotional Strength []x Patient feels connected with others/family/visitors/staff [] Distress [] Loneliness/isolation [] Abandonment Spirituality of Patient [x] Person of Tayler [x] Attends Mormon of their Tayler [x] Believes in Prayer [x] Reads Bible or Judaism materials [] There are Spiritual issues to be addressed Senior Ui Software Engineer Interventions x x[] Prayer [x] Active listening [x] Non-anxious presence [x] Spiritual/emotional support [] Crisis/trauma care [] Spiritual counseling [] Bereavement support [] Provided bereavement packet [] Provided Bible/devotional materials [] Provided toy/stuffed animal, coloring book to patient or family member [] Provided Communion [] Anointing/[place] [] Salvation [x] Completed spiritual assessment [] Other: Impact on Illness or Injury [] Angry [] Fearful [] Anxious [] Often cries [] Exhaustion [] Unable to work [] Unable to attend samaritan [] Unable to walk/stand [] Unable to read [] Unable to drive [] Unable to eat/drink [] Unable to sleep [] Unable to be with family [] Patient intubated [] Other: Summary Time spent with patient 15 min
[2022-10-24 16:31] LABS: Glucose Point of Care 177 mg/dL (70-110)
[2022-10-24] MEDS: insulin lispro 100 unit/1 mL SUBCUT (17:46)
--- NOTE | 2022-10-24 19:02 | PC.NURSE ---
pts temp was 100.0. dr. schulte notified, no new orders recieved. will continue temp
--- NOTE | 2022-10-24 20:16 | PC.NURSE ---
Patient A&O, VSS at this time. Patient educated to not to get up by herself and to use call light if she needs to use bedside commode. Patient reports that she has taken off foot pump and SCD at this time. No current complaints of pain. Incisions dry and intact. IV dry and intact.
[2022-10-24] MEDS: hyDROXYzine 25 mg Capsule PO (20:18)
[2022-10-24 20:54] LABS: Glucose Point of Care 168 mg/dL (70-110)
[2022-10-25] VITALS: BP 132/58; PULSE 78; RESP 18; TEMP 36.9; O2SAT 95
[2022-10-25 04:00] VITALS: BP 116/65; PULSE 75; RESP 23; TEMP 36.9; O2SAT 96
[2022-10-25 05:07] LABS: Basophils % 0.3 %; Eosinophils % 0.1 %; Hematocrit 29.2 % (37.0-47.0); Hemoglobin 9.5 g/dL (11.5-15.3); Lymphocytes # 1.3 10^3/uL (0.8-4.8); Lymphocytes % 19.3 %; Mean Corpuscular HGB Conc 32.5 g/dL (30.0-36.0); Mean Corpuscular Hemoglobin 31.4 pg (28.0-34.0); Mean Corpuscular Volume 96.4 fl (81-99); Mean Platelet Volume 9.4 fL (7.4-10.4); Monocytes # 0.8 10^3/uL (0.2-0.9); Monocytes % 11.8 %; Neutrophils # 4.57 10^3/uL (1.8-7.7); Neutrophils % 68.4 %; Nucleated Red Blood Cells % 0 %; Platelet Count 201 10^3/cmm (130-400); Red Blood Count 3.03 10^6/uL (4.1-5.3); Red Cell Distribution Width 12.8 % (12.1-15.1); White Blood Count 6.7 10^3/uL (4.0-10.0)
[2022-10-25 05:48] LABS: Anion Gap 13.8 (5-19); Blood Urea Nitrogen 14 mg/dL (8-23); Calcium 8.4 mg/dL (8.5-10.5); Carbon Dioxide 23 mmol/L (22-29); Chloride 107 mmol/L (98-107); Glomerular Filtration Rate 55.3 mL/min (90-130); Glucose 124 mg/dL (65-115); Osmolality Calculated 292 mOsm/kg (285-295); Potassium 3.8 mmol/L (3.5-5.1); Sodium 140 mmol/L (136-145)
[2022-10-25 05:51] LABS: Creatinine Clr Calc Pharmacy 48.8913
[2022-10-25] MEDS: acetaminophen 500 mg Tablet 1000 MG PO (06:31)
[2022-10-25] MEDS: lactated ringers 1,000 ML 100 ML IV (06:31)
[2022-10-25 06:43] LABS: Glucose Point of Care 137 mg/dL (70-110)
--- NOTE | 2022-10-25 06:45 | PM.PN ---
Subjective Subjective: Patient seen evaluated this morning.? Patient is significant improvement and wearing off of her fascia iliac a block.? She has restorationist of her sensation to right thigh.? Still slight decreased sensation over lateral femoral cutaneous.? Patient's regained motor strength to the right lower extremity particular over femoral nerve distribution.? Patient's walked well with therapy.? Patient states she feels comfortable and confident discharging home later today.? She will have home health care.? Internal medicine on board. Vitals/I&O/Wt Last Vital Signs Temp 98.6 F 10/25/22 14:59 Pulse 72 10/25/22 14:59 Resp 18 10/25/22 14:59 BP 99/60 10/25/22 14:59 Pulse Ox 95 10/25/22 14:59 O2 Del Method 10/25/22 12:00 O2 Flow Rate 6 10/23/22 14:34 Physical Exam Narrative: Examination of the right lower extremity.? Right hip incision dressings are clean dry and intact.? Normal postoperative swelling ecchymosis right thigh compartment soft compressible.? Jewish of sensation to the right thigh.? Slight decrease sensation over the lateral femoral cutaneous.? SPN/DPN/tibial/saphenous/sural nerve distribution intact.? Patient is able to perform knee extension and hold out a straight leg raise.? Patient able to perform hip flexion slightly weaker to the contralateral hip, significant improvement from yesterday.? Able to ambulate with a walker in the room today.? Significant improvement in hamstring strength.? Distal pulses palpable. Urinary Catheter Management: De Paz: Cath Placed During This Visit: yes, but has since been removed by the nurse Reason for Continuing Indwelling Catheter: Other Urinary Catheter Date of Insertion: 10/23/22 Urinary Catheter Time of Insertion: 12:00 Date Urinary Catheter Removed: 10/24/22 Time Urinary Catheter Discontinued: 06:39 Data 10/25/22 04:37 10/25/22 04:37 A&P Assessment and plan (1) Status post total hip replacement, right: Plan PT/OT Anterior hip precautions Weightbearing as tolerated right lower extremity Postoperative antibiotics Postoperative TXA Postop DVT prophylaxis?[facility] Internal medicine on board for medical management Ice as needed Diabetic diet A.m. labs reviewed Dressings remain on in place unless becomes saturated Stable for discharge from orthopedic standpoint once cleared by internal medicine she may discharge home later today.? Plan with home health care at discharge.? We will follow-up with Dr. Hopkins in the office in 2 weeks.? Contact the office for any questions or concerns. Attestations Medical Necessity Statement*: Postoperative care right total hip arthroplasty Coding Level of Care Code Acute Code for [facility] Fwd Diagnoses Status post total hip replacement, right Z96.641 Time Spent (min) 20
[2022-10-25 07:45] VITALS: PULSE 73; RESP 16; O2SAT 93
[2022-10-25 08:00] VITALS: BP 116/60; PULSE 75; RESP 18; TEMP 37.2; O2SAT 96
[2022-10-25] MEDS: calcium carbonate 500 mg Chew Tablet 1000 MG PO (08:57)
[2022-10-25] MEDS: multivitamin therapeutic Tablet 1 TAB PO (08:58)
[2022-10-25] MEDS: cholecalciferol (vitamin D3) 1,000 unit Tablet 1000 UNIT PO (08:58)
[2022-10-25] MEDS: lisinopril 20 mg Tablet PO (08:58)
[2022-10-25] MEDS: escitalopram 10 mg Tablet 20 MG PO (08:58)
[2022-10-25] MEDS: iron polysaccharide complex 150 mg Capsule PO (08:58)
[2022-10-25] MEDS: aspirin 81 mg EC Tablet PO (08:58)
[2022-10-25] MEDS: amlodipine 5 mg Tablet PO (08:58)
[2022-10-25] MEDS: apixaban 5 mg Tablet 2.5 MG PO (08:58)
[2022-10-25] MEDS: fenofibrate 145 mg Tablet PO (08:58)
[2022-10-25] MEDS: sennosides-docusate Tablet 2 TAB PO (08:58)
[2022-10-25] MEDS: chlorhexidine gluconate 0.12% Btl 473 mL 30 ML MUCOUS MEM ×2 (09:00→12:09)
[2022-10-25] MEDS: mupirocin oint 22 gm 1 APPLIC NASAL (09:03)
--- NOTE | 2022-10-25 10:04 | P.PN_ITS ---
Subjective Subjective: This morning, she sitting up in a chair, has minimal pain, she is ready to go to the care home no nausea, no vomiting, chest pain, shortness of breath, no fevers Vitals/I&O/Wt Last Vital Signs Temp 99.0 F 10/25/22 08:00 Pulse 75 10/25/22 08:00 Resp 18 10/25/22 08:00 BP 116/60 10/25/22 08:00 Pulse Ox 96 10/25/22 08:00 O2 Del Method 10/25/22 08:00 O2 Flow Rate 6 10/23/22 14:34 10/24/22 10/25/22 10/25/22 22:59 06:59 14:59 Intake Total 2278.333 / 3638.333 2300 / 5938.333 Output Total 50 / 50 1400 / 1450 Balance 2228.333 / 3588.333 900 / 4488.333 Weight last 48 hrs Weight 66.678 kg Physical Exam Const: COMMON NORMALS: no acute distress and patient oriented x3 Resp: COMMON NORMALS: normal respiratory effort, No retractions, No use of accessory muscles and clear to auscultation bilaterally AUSCULTATION: clear to auscultation bilaterally Cardio: COMMON NORMALS: regular rate, regular rhythm, S1 normal heart sound present and S2 normal heart sound present RATE: regular rate RHYTHM: regular rhythm HEART SOUNDS: S1 normal heart sound present and S2 normal heart sound present GI: COMMON NORMALS: Normal to inspection, nondistended, normoactive bowel sounds present, non-tender and no bruits Extremity: COMMON NORMALS: no pedal edema Neuro: COMMON NORMALS: patient oriented x3 Psych: COMMON NORMALS: mental status grossly normal Urinary Catheter Management: De Paz: Cath Placed During This Visit: yes, but has since been removed by the nurse Reason for Continuing Indwelling Catheter: Other Urinary Catheter Date of Insertion: 10/23/22 Urinary Catheter Time of Insertion: 12:00 Date Urinary Catheter Removed: 10/24/22 Time Urinary Catheter Discontinued: 06:39 Data 10/25/22 04:37 10/25/22 04:37 A&P Assessment and plan (1) Osteoarthritis of hip: (2) Hypertriglyceridemia: (3) HTN, goal below 130/80: (4) Controlled type 2 diabetes mellitus with hyperglycemia, without long-term current use of insulin: Plan Status post right hip arthroplasty -Pain control, anticoagulation, PT OT as per orthopedic team Type 2 diabetes mellitus, low-dose sliding scale Hypertension, continue home Norvasc, lisinopril Plan for today to be discharged today to the care home Attestations Medical Necessity Statement*: To be discharged to the care home Coding Level of Care Code Acute Code for [facility] Fwd Diagnoses Osteoarthritis of hip M16.9 Hypertriglyceridemia E78.1 HTN, goal below 130/80 I10 Controlled type 2 diabetes mellitus with hyperglycemia, without long-term current use of insulin E11.65
[2022-10-25 10:12] LABS: SARS Covid-2 Antigen negative (Negative)
[2022-10-25 10:51] LABS: Glucose Point of Care 188 mg/dL (70-110)
[2022-10-25 12:00] VITALS: BP 99/60; PULSE 72; RESP 18; TEMP 37; O2SAT 95
[2022-10-25] MEDS: insulin lispro 100 unit/1 mL SUBCUT (12:06)
[2022-10-25 14:59] VITALS: BP 99/60; PULSE 72; RESP 18; TEMP 37; O2SAT 95
--- NOTE | 2022-10-25 16:00 | PM.DCS ---
Discharge Providers Date of Admission: 10/23/2022 Date of Discharge: October 25, 2022 Attending Provider at Admission: Ton Hopkins DO Attending Provider at Discharge: Ton Hopkins DO Consults: Hospitalist?medical management Primary Care Provider: KAPIL Colvin Diagnoses at Discharge Discharge Diagnosis (1) Status post total hip replacement, right: Status: Acute Reason for Visit Reason for Visit: M16.9 Brief History: Patient had failed conservative treatment of degenerative disease of the right hip Hospital Course Hospital Course Patient been worked up in the outpatient setting for failed conservative treatment of right hip degenerative joint disease. She has been cleared by her primary care physician and anesthesia. Seen evaluated in the preoperative holding area. Once cleared for surgery she was taken back to the operative suite underwent anesthesia per the anesthesia department she underwent a right total hip arthroplasty utilizing anterior approach with [place] robotic assisted. She tolerated the procedure without any complication she was taken back to PACU and recovered. Once recovered she was then admitted to the floor for postoperative care. Internal medicine was consulted for medical management. Labs were monitored postoperatively. Received appropriate DVT prophylaxis, perioperative antibiotics postoperative TXA. Was weightbearing as tolerated to the right lower extremity. Dressings were changed as needed. Anterior hip precautions. Worked with PT/OT. Patient had received a fascia iliac a block and did have some slight decreased motor postoperatively. Patient recovered well postoperatively and on postoperative day 2 it was determined patient was stable for discharge from orthopedic standpoint as well as internal medicine and physical therapy. Her block is worn off and she had significant regain of her motor strength and worked well with therapy. At this point time plan for discharge home with home health care. Understands anterior hip precautions as well as dressing instructions. Patient was then subsequently discharged home with home health care as well as appropriate discharge instructions as well as pain medication and DVT prophylaxis. She will follow-up with me in the office in 2 weeks. Patient understands she had and questions or concerns and contact the office. Physical Exam Narrative: Examination of the right lower extremity.? Right hip incision dressings are clean dry and intact.? Normal postoperative swelling ecchymosis right thigh compartment soft compressible.? Adventism of sensation to the right thigh.? Slight decrease sensation over the lateral femoral cutaneous.? SPN/DPN/tibial/saphenous/sural nerve distribution intact.? Patient is able to perform knee extension and hold out a straight leg raise.? Patient able to perform hip flexion slightly weaker to the contralateral hip, significant improvement from yesterday.? Able to ambulate with a walker in the room today.? Significant improvement in hamstring strength.? Distal pulses palpable. Urinary Catheter Management: De Paz: Cath Placed During This Visit: yes, but has since been removed by the nurse Reason for Continuing Indwelling Catheter: Other Urinary Catheter Date of Insertion: 10/23/22 Urinary Catheter Time of Insertion: 12:00 Date Urinary Catheter Removed: 10/24/22 Time Urinary Catheter Discontinued: 06:39 Discharge Data Studies Completed and Pending Completed Studies During Hospitalization Category Date Time Status XR hip RT 1V wo/w pel [id number] Routine Exams 10/23/22 Completed XR hip RT 2-3V wo/w pel* [id number] Routine Exams 10/23/22 14:45 Completed Radiology Impressions Hip/Pelvis X-Ray 10/23/22 14:45 IMPRESSION: 1. Right total hip arthroplasty in excellent position. Laboratory Results WBC 6.7 10^3/uL (4.0-10.0) 10/25/22 04:37 RBC 3.03 10^6/uL (4.1-5.3) L 10/25/22 04:37 Hgb 9.5 g/dL (11.5-15.3) L 10/25/22 04:37 Hct 29.2 % (37.0-47.0) L 10/25/22 04:37 MCV 96.4 fl (81-99) 10/25/22 04:37 MCH 31.4 pg (28.0-34.0) 10/25/22 04:37 MCHC 32.5 g/dL (30.0-36.0) 10/25/22 04:37 RDW 12.8 % (12.1-15.1) 10/25/22 04:37 Plt Count 201 10^3/cmm (130-400) 10/25/22 04:37 MPV 9.4 fL (7.4-10.4) 10/25/22 04:37 Neut % (Auto) 68.4 % 10/25/22 04:37 Lymph % (Auto) 19.3 % 10/25/22 04:37 Burnett % (Auto) 11.8 % 10/25/22 04:37 Eos % (Auto) 0.1 % 10/25/22 04:37 Baso % (Auto) 0.3 % 10/25/22 04:37 Neut # (Auto) 4.57 10^3/uL (1.8-7.7) 10/25/22 04:37 Lymph # (Auto) 1.3 10^3/uL (0.8-4.8) 10/25/22 04:37 Burnett # (Auto) 0.8 10^3/uL (0.2-0.9) 10/25/22 04:37 Eos # (Auto) 0.0 10^3/uL (0.0-0.8) 10/25/22 04:37 Baso # (Auto) 0.0 10^3/uL (0.0-0.1) 10/25/22 04:37 Nucleated RBC % (auto) 0 % 10/25/22 04:37 Nucleated RBCs # 0.0 /100WBC 10/25/22 04:37 Sodium 140 mmol/L (136-145) 10/25/22 04:37 Potassium 3.8 mmol/L (3.5-5.1) 10/25/22 04:37 Chloride 107 mmol/L (98-107) 10/25/22 04:37 Carbon Dioxide 23 mmol/L (22-29) 10/25/22 04:37 Anion Gap 13.8 (5-19) 10/25/22 04:37 BUN 14 mg/dL (8-23) 10/25/22 04:37 Creatinine 1.0 mg/dL (0.5-0.9) H 10/25/22 04:37 GFR Calculation 55.3 mL/min (90-130) L 10/25/22 04:37 Glucose 124 mg/dL (65-115) H 10/25/22 04:37 POC Glucose 188 mg/dL (70-110) H 10/25/22 10:19 Calculated Osmolality 292 mOsm/kg (285-295) 10/25/22 04:37 Calcium 8.4 mg/dL (8.5-10.5) L 10/25/22 04:37 Urine Color Yellow (Yellow) 10/23/22 10:11 Urine Appearance Clear (CLEAR) 10/23/22 10:11 Urine pH 5 (5-7) 10/23/22 10:11 Ur Specific Pierre 1.025 (1.005-1.030) 10/23/22 10:11 Urine Protein Trace (Negative) 10/23/22 10:11 Urine Glucose (UA) 4+ (Normal) H 10/23/22 10:11 Urine Ketones 1+ (Negative) H 10/23/22 10:11 Urine Blood Neg (Negative) 10/23/22 10:11 Urine Nitrate Negative (Negative) 10/23/22 10:11 Urine Bilirubin Neg (Negative) 10/23/22 10:11 Urine Urobilinogen Neg mg/dL (Negative) 10/23/22 10:11 Ur Leukocyte Esterase Negative (Negative) 10/23/22 10:11 Urine RBC Rare /hpf (0-2) 10/23/22 10:11 Urine WBC Rare /hpf (0-5) 10/23/22 10:11 Ur Squamous Epith Cells 10-15 /hpf (0-5) H 10/23/22 10:11 Amorphous Sediment 1+ /hpf 10/23/22 10:11 Urine Bacteria Trace /hpf (NONE) 10/23/22 10:11 Hyaline Casts 5-10 /lpf H 10/23/22 10:11 SARS-CoV-2 Ag (Rapid) negative (Negative) 10/25/22 09:38 Blood Type A Positive 10/23/22 10:13 Rho(D) Type Positive 10/23/22 10:13 Antibody Screen Negative 10/23/22 10:13 Vitals Last Vital Signs Temp 98.6 F 10/25/22 14:59 Pulse 72 10/25/22 14:59 Resp 18 10/25/22 14:59 BP 99/60 10/25/22 14:59 Pulse Ox 95 10/25/22 14:59 O2 Del Method 10/25/22 12:00 O2 Flow Rate 6 10/23/22 14:34 Discharge Plan Discharge Patient Disposition: Home Condition: Stable Prescriptions: New Eliquis 5 mg Tablet 2.5 mg PO BID 30 Days Qty: 30 0RF Ferrex 150 150 mg iron Capsule 150 mg PO BIDWM 30 Days Qty: 30 0RF Stool Softener-Laxative 8.6-50 mg Tablet 1 tab PO BID 30 Days Qty: 60 0RF cholecalciferol (vitamin D3) 25 mcg (1,000 unit) Tablet 1,000 unit PO DAILY 30 Days Qty: 30 0RF Thera 400 mcg Tablet 1 tab PO DAILY 30 Days Qty: 30 0RF oxycodone 5 mg tablet 5 mg PO Q6H PRN (Reason: pain) 7 Days Qty: 28 0RF Continued turmeric root extract 500 mg capsule 500 mg PO BID amlodipine 5 mg tablet 5 mg PO DAILY Qty: 30 2RF Farxiga 10 mg tablet 10 mg PO QAM Qty: 30 2RF escitalopram oxalate 20 mg tablet 20 mg PO DAILY Qty: 30 2RF fenofibrate nanocrystallized [Tricor] 145 mg tablet 145 mg PO DAILY Qty: 30 2RF lisinopril 20 mg tablet 20 mg PO BID Qty: 60 2RF zonisamide 50 mg capsule 50 mg PO Q12H Qty: 60 2RF multivitamin Tablet 1 tab PO DAILY aspirin 81 mg Tablet,Delayed Release (Dr/Ec) 81 mg PO DAILY Vitamin C 500 mg Tablet 500 mg PO DAILY hydroxyzine pamoate 25 mg capsule 25 mg PO BEDTIME CoQ-10 100 mg Capsule 100 mg PO DAILY Discharge Orders: Discharge Order (Routine); Ordered 10/25/22 Ordered By: Shaggy Thorne Other Ambulatory Orders: DME: [facility] (Order) Location: None Selected Ordered By: Ton Hopkins Referrals: [facility] [Outside] Ton Hopkins DO [Physician] - 11/07/22 1:15 pm Discharge Diet: Regular and Diabetic Discharge Activity: Resume usual activity Patient Instructions: Oxycodone, Slow Release (By mouth), Apixaban (By mouth) (Eliquis), Osteoarthritis (DC), Chronic Hypertension (DC), Opioid Safety (DC), Anterior Hip Replacement (DC), Opioid Safety Activity Restrictions/Additional Instructions: Orthopedic discharge instructions: Anterior hip precautions as educated by physical therapy Ice as needed for pain and swelling Encourage range of motion right hip as tolerated Weight-bear as tolerated to the right lower extremity Keep incision clean dry and intact Okay to shower Utilize walker as needed for stability and safe gait transfers Take DVT prophylaxis (blood thinner) Eliquis 2.5 mg twice daily for a total of 35 days Stool softener as needed for constipation Follow-up with Dr. Hopkins the office in 2 weeks Contact the office for any questions or concerns Discharge Attestations Time Spent in Discharge Care*: greater than 30 min Quality Metrics Clinical Quality Measures [ No reported AMI, CVA or VTE this stay] Coding Level of Care Code Acute Chg FW DC note Diagnoses Status post total hip replacement, right Z96.641 Time Spent (min) 45
--- NOTE | 2022-10-27 23:01 | PM.PN ---
Subjective Subjective: Patient seen evaluated this morning. Patient is significant improvement and wearing off of her fascia iliac a block. She has yazidi of her sensation to right thigh. Still slight decreased sensation over lateral femoral cutaneous. Patient's regained motor strength to the right lower extremity particular over femoral nerve distribution. Patient's walked well with therapy. Patient states she feels comfortable and confident discharging home later today. She will have home health care. Internal medicine on board. Vitals/I&O/Wt Last Vital Signs Temp 98.6 F 10/25/22 14:59 Pulse 72 10/25/22 14:59 Resp 18 10/25/22 14:59 BP 99/60 10/25/22 14:59 Pulse Ox 95 10/25/22 14:59 O2 Del Method 10/25/22 12:00 O2 Flow Rate 6 10/23/22 14:34 Physical Exam Narrative: Examination of the right lower extremity. Right hip incision dressings are clean dry and intact. Normal postoperative swelling ecchymosis right thigh compartment soft compressible. Pentecostalism of sensation to the right thigh. Slight decrease sensation over the lateral femoral cutaneous. SPN/DPN/tibial/saphenous/sural nerve distribution intact. Patient is able to perform knee extension and hold out a straight leg raise. Patient able to perform hip flexion slightly weaker to the contralateral hip, significant improvement from yesterday. Able to ambulate with a walker in the room today. Significant improvement in hamstring strength. Distal pulses palpable. Urinary Catheter Management: De Paz: Cath Placed During This Visit: yes, but has since been removed by the nurse Reason for Continuing Indwelling Catheter: Other Urinary Catheter Date of Insertion: 10/23/22 Urinary Catheter Time of Insertion: 12:00 Date Urinary Catheter Removed: 10/24/22 Time Urinary Catheter Discontinued: 06:39 Data 10/25/22 04:37 10/25/22 04:37 A&P Assessment and plan (1) Status post total hip replacement, right: Plan PT/OT Anterior hip precautions Weightbearing as tolerated right lower extremity Postoperative antibiotics Postoperative TXA Postop DVT prophylaxis?Tristen Internal medicine on board for medical management Ice as needed Diabetic diet A.m. labs reviewed Dressings remain on in place unless becomes saturated Stable for discharge from orthopedic standpoint once cleared by internal medicine she may discharge home later today. Plan with home health care at discharge. We will follow-up with Dr. Hopkins in the office in 2 weeks. Contact the office for any questions or concerns. Attestations Medical Necessity Statement*: Postoperative care right total hip arthroplasty Coding Level of Care Code Acute Code for Chg Fwd Diagnoses Status post total hip replacement, right Z96.641 Time Spent (min) 20
== END 2022-10-25 14:55 | disposition skilled nursing facility (03) | DRG 470 ==
LOC: MEDSURG 14:49
PROVIDERS: Anesthesiology; Family Medicine; Admitting Provider Student in an Organized Health Care Education/Training Program; PCP Nurse Practitioner; Visit Provider Student in an Organized Health Care Education/Training Program
PROC: 8E0Y0CZ Robotic Assisted Procedure of Lower Extremity, Open Approach (ICD-10-PCS; CPT 27130; principal; 2022-10-23 09:50)
DX: M16.11 Unilateral primary osteoarthritis, right hip (principal); Z79.82 Long term (current) use of aspirin; E11.65 Type 2 diabetes mellitus with hyperglycemia; I10 Essential (primary) hypertension; F41.8 Other specified anxiety disorders; Z87.891 Personal history of nicotine dependence; E78.1 Pure hyperglyceridemia
CPT/HCPCS: 36415; 36416; 51702; 73501; 73502; 76000; 80048; 81001; 82962; 85025; 86850; 86900; 87426; 93005; 96372; 97110; 97116; 97161; 97165; 97530; C1713; C1776; G0378; J0131; J0690; J1100; J1815; J2250; J2370; J2405; J2704; J2795; J3010; J3370; J7030; J7120

== ENCOUNTER → 2022-11-07 12:38 | Outpatient (BNVA) | payer MEDICARE, BC, SELFPAY | PROVIDERS: PCP Nurse Practitioner; Visit Provider Student in an Organized Health Care Education/Training Program | DX: Z96.641 Presence of right artificial hip joint (principal) | CPT/HCPCS: 73502; 99024 ==

== ENCOUNTER 2022-11-15 06:00 | Outpatient (RCR) | payer MEDICARE, BC, SELFPAY | END 2022-11-26 23:59 | disposition home or self-care (01) | LOC: TPT 06:00 | PROVIDERS: PCP Nurse Practitioner; Visit Provider Student in an Organized Health Care Education/Training Program | DX: Z47.1 Aftercare following joint replacement surgery (principal); Z96.641 Presence of right artificial hip joint | CPT/HCPCS: 97110; 97162 ==

== ENCOUNTER 2022-11-27 06:00 | Outpatient (RCR) | payer MEDICARE, BC, SELFPAY | END 2022-12-27 23:59 | disposition home or self-care (01) | LOC: TPT 06:00 | PROVIDERS: PCP Nurse Practitioner; Visit Provider Student in an Organized Health Care Education/Training Program | DX: Z96.641 Presence of right artificial hip joint (principal) | CPT/HCPCS: 97110 ==

== ENCOUNTER → 2022-12-19 14:12 | Outpatient (BNVA) | payer MEDICARE, BC, SELFPAY | PROVIDERS: PCP Nurse Practitioner; Visit Provider Student in an Organized Health Care Education/Training Program | DX: Z96.641 Presence of right artificial hip joint (principal) | CPT/HCPCS: 73502; 99024 ==

== ENCOUNTER → 2022-12-31 11:22 | Outpatient (BNVA) | payer MEDICARE, BC, SELFPAY | PROVIDERS: PCP Nurse Practitioner; Visit Provider Nurse Practitioner | DX: E11.65 Type 2 diabetes mellitus with hyperglycemia (principal); I10 Essential (primary) hypertension | CPT/HCPCS: 80053; 80061; 83036 ==

== ENCOUNTER → 2023-01-01 10:57 | Outpatient (BNVA) | payer MEDICARE, BC, SELFPAY | PROVIDERS: PCP Nurse Practitioner; Visit Provider Nurse Practitioner | DX: I10 Essential (primary) hypertension (principal); E11.65 Type 2 diabetes mellitus with hyperglycemia; F41.8 Other specified anxiety disorders; E78.1 Pure hyperglyceridemia; M54.50 Low back pain, unspecified; M79.604 Pain in right leg | CPT/HCPCS: 81000 ==

== ENCOUNTER → 2023-03-24 10:00 | Outpatient (BNVA) | payer MEDICARE, BC, SELFPAY | PROVIDERS: PCP Nurse Practitioner; Visit Provider Nurse Practitioner | DX: E11.65 Type 2 diabetes mellitus with hyperglycemia (principal) | CPT/HCPCS: 80053; 80061; 83036 ==

== ENCOUNTER → 2023-04-28 13:50 | Outpatient (BNVA) | payer MEDICARE, BC, SELFPAY | PROVIDERS: PCP Nurse Practitioner; Visit Provider Student in an Organized Health Care Education/Training Program | DX: Z96.641 Presence of right artificial hip joint (principal) | CPT/HCPCS: 73502; 99213 ==

== ENCOUNTER → 2023-06-05 08:28 | Outpatient (BNVA) | payer MEDICARE, BC, SELFPAY | PROVIDERS: PCP Nurse Practitioner; Visit Provider Nurse Practitioner | DX: N18.30 Chronic kidney disease, stage 3 unspecified (principal); E11.65 Type 2 diabetes mellitus with hyperglycemia | CPT/HCPCS: 80053; 80061; 83036 ==

== ENCOUNTER → 2023-06-10 16:33 | Outpatient (BNVA) | payer MEDICARE, BC, SELFPAY | PROVIDERS: PCP Nurse Practitioner; Visit Provider Nurse Practitioner | DX: I10 Essential (primary) hypertension (principal); E11.65 Type 2 diabetes mellitus with hyperglycemia; F41.8 Other specified anxiety disorders; E78.1 Pure hyperglyceridemia; M54.50 Low back pain, unspecified; M79.604 Pain in right leg | CPT/HCPCS: 81000 ==

== ENCOUNTER → 2023-07-30 11:10 | Outpatient (BNVA) | payer MEDICARE, BC, SELFPAY | PROVIDERS: PCP Nurse Practitioner; Visit Provider Internal Medicine Nephrology | DX: N18.30 Chronic kidney disease, stage 3 unspecified (principal) | CPT/HCPCS: 80069; 81003; 82043; 82306; 82310; 83970; 85025 ==

== ENCOUNTER 2023-08-06 10:51 | Outpatient (CLI) | payer MEDICARE, BC, SELFPAY ==
--- NOTE | 2023-08-06 10:56 | US_ITS ---
WS: [id number] RENAL ULTRASOUND HISTORY: STAGE 3B CHRONIC KIDNEY DZ COMPARISON: 05/02/2009 TECHNIQUE: 2-D and color Doppler imaging of the kidney submitted. Right kidney: 9.0 cm x 4.1 cm x 3.7 cm. Cortex: 1.0 cm Normal echogenicity with no hydronephrosis or mass. Left kidney: 9.0 cm x 3.9 cm x 3.4 cm. Cortex: 1.1 cm Normal echogenicity with no hydronephrosis or mass. Aorta: Normal. Urinary Bladder: Minimally distended. IMPRESSION: 1. No renal obstruction. 2. Each kidney has decreased by approximately 1 to 1.5 cm in length as compared to the study from 200 9.
== END 2023-08-06 10:52 | disposition home or self-care (01) ==
LOC: RAD 10:51
PROVIDERS: PCP Nurse Practitioner; Visit Provider Internal Medicine Nephrology
DX: N18.32 Chronic kidney disease, stage 3b (principal)
CPT/HCPCS: 76770

== ENCOUNTER → 2023-08-28 08:54 | Outpatient (BNVA) | payer MEDICARE, BC, SELFPAY | PROVIDERS: PCP Nurse Practitioner; Visit Provider Nurse Practitioner | DX: E11.65 Type 2 diabetes mellitus with hyperglycemia (principal); E78.1 Pure hyperglyceridemia | CPT/HCPCS: 80053; 80061; 83036 ==

== ENCOUNTER → 2023-09-02 13:51 | Outpatient (BNVA) | payer MEDICARE, BC, SELFPAY | PROVIDERS: PCP Nurse Practitioner; Visit Provider Nurse Practitioner | DX: I10 Essential (primary) hypertension (principal); E11.65 Type 2 diabetes mellitus with hyperglycemia; F41.8 Other specified anxiety disorders; E78.1 Pure hyperglyceridemia; M54.50 Low back pain, unspecified; M79.604 Pain in right leg | CPT/HCPCS: 81000 ==

== ENCOUNTER → 2023-10-09 10:50 | Outpatient (BNVA) | payer MEDICARE, BC, SELFPAY | PROVIDERS: PCP Nurse Practitioner; Visit Provider Physician Assistant | DX: Z96.641 Presence of right artificial hip joint (principal) | CPT/HCPCS: 73502; 99213 ==

== ENCOUNTER 2023-11-07 06:00 | Outpatient (CLI) | payer MEDICARE, BC, SELFPAY | END 2023-11-07 06:01 | disposition home or self-care (01) | LOC: SPT 11-10 13:13 | PROVIDERS: PCP Nurse Practitioner; Visit Provider Student in an Organized Health Care Education/Training Program | DX: Z46.89 Encounter for fitting and adjustment of other specified devices (principal); M25.562 Pain in left knee | CPT/HCPCS: 97760; 99213; L1812 ==

== ENCOUNTER → 2023-11-07 11:38 | Outpatient (BNVA) | payer MEDICARE, BC, SELFPAY | PROVIDERS: PCP Nurse Practitioner; Visit Provider Physician Assistant | DX: S83.8X2A Sprain of other specified parts of left knee, initial encounter; M17.12 Unilateral primary osteoarthritis, left knee; W19.XXXA Unspecified fall, initial encounter; Z46.89 Encounter for fitting and adjustment of other specified devices; M25.562 Pain in left knee | CPT/HCPCS: 73562; 97760; 99213; L1812 ==

== ENCOUNTER 2023-11-18 06:00 | Outpatient (RCR) | payer MEDICARE, BC, SELFPAY | END 2023-11-27 23:59 | disposition home or self-care (01) | LOC: TPT 06:00 | PROVIDERS: Visit Provider Physician Assistant | DX: M25.362 Other instability, left knee (principal) | CPT/HCPCS: 97110; 97162 ==

== ENCOUNTER 2023-12-10 11:29 | Outpatient (RCR) | payer MEDICARE, BC, SELFPAY | END 2023-12-22 23:59 | disposition home or self-care (01) | LOC: TPT 11:29 | PROVIDERS: Visit Provider Physician Assistant | DX: M25.362 Other instability, left knee (principal) | CPT/HCPCS: 97110 ==

== ENCOUNTER → 2024-01-28 09:34 | Outpatient (BNVA) | payer MEDICARE, BC, SELFPAY | PROVIDERS: PCP Nurse Practitioner; Visit Provider Internal Medicine Nephrology | DX: N18.30 Chronic kidney disease, stage 3 unspecified (principal); E11.9 Type 2 diabetes mellitus without complications; E11.65 Type 2 diabetes mellitus with hyperglycemia; E55.9 Vitamin D deficiency, unspecified; N18.9 Chronic kidney disease, unspecified | CPT/HCPCS: 80069; 82043; 82306; 82310; 83970; 85025 ==

== ENCOUNTER → 2024-03-01 09:46 | Outpatient (BNVA) | payer MEDICARE, BC, SELFPAY | PROVIDERS: PCP Nurse Practitioner; Visit Provider Nurse Practitioner | DX: E11.65 Type 2 diabetes mellitus with hyperglycemia (principal); N18.30 Chronic kidney disease, stage 3 unspecified | CPT/HCPCS: 80053; 80061; 83036 ==

== ENCOUNTER → 2024-03-04 14:18 | Outpatient (BNVA) | payer MEDICARE, BC, SELFPAY | PROVIDERS: PCP Nurse Practitioner; Visit Provider Nurse Practitioner | DX: E11.65 Type 2 diabetes mellitus with hyperglycemia (principal); I10 Essential (primary) hypertension; F41.8 Other specified anxiety disorders; E78.1 Pure hyperglyceridemia; M54.50 Low back pain, unspecified; M79.604 Pain in right leg; H60.90 Unspecified otitis externa, unspecified ear | CPT/HCPCS: 81000 ==

== ENCOUNTER → 2024-07-27 10:46 | Outpatient (BNVA) | payer MEDICARE, BC, SELFPAY | PROVIDERS: PCP Nurse Practitioner; Visit Provider Nurse Practitioner | DX: N18.30 Chronic kidney disease, stage 3 unspecified (principal); N18.9 Chronic kidney disease, unspecified | CPT/HCPCS: 80069; 82043; 82310; 83970; 85025 ==

== ENCOUNTER → 2024-08-16 10:14 | Outpatient (BNVA) | payer MEDICARE, BC, SELFPAY | PROVIDERS: PCP Nurse Practitioner; Visit Provider Nurse Practitioner | DX: E11.9 Type 2 diabetes mellitus without complications (principal); E55.9 Vitamin D deficiency, unspecified; E11.65 Type 2 diabetes mellitus with hyperglycemia | CPT/HCPCS: 80053; 80061; 82306; 83036 ==

== ENCOUNTER → 2025-01-24 09:53 | Outpatient (BNVA) | payer MEDICARE, BC, SELFPAY | PROVIDERS: PCP Nurse Practitioner; Visit Provider Nurse Practitioner | DX: N18.30 Chronic kidney disease, stage 3 unspecified (principal); E55.9 Vitamin D deficiency, unspecified; E11.65 Type 2 diabetes mellitus with hyperglycemia | CPT/HCPCS: 80053; 80069; 82043; 82306; 82310; 83036; 83970; 85025 ==

== ENCOUNTER → 2025-08-18 10:29 | Outpatient (BNVA) | payer MEDICARE, BC, SELFPAY | PROVIDERS: PCP Nurse Practitioner; Visit Provider Nurse Practitioner | DX: E55.9 Vitamin D deficiency, unspecified (principal); E11.9 Type 2 diabetes mellitus without complications | CPT/HCPCS: 80053; 80061; 82306; 83036; 85025 ==